=== PATIENT | male | born 1950 | race Caucasian/White ===

== ENCOUNTER → 2019-12-24 | Outpatient (CLI) | payer OTHER ==
[~2019-12-24] VITALS: Ht 180.3 cm; Wt 79.4 kg
[~2019-12-24] MED LIST: ADULT LOW DOSE81 MG PO; VITAMIN C1000 MG PO
--- NOTE | 2019-12-27 11:17 | P ---
[facility] [place] [address] PROCEDURE REPORT Name: WILYDAWN III Room #: [facility]#: [id number] Admission: 12/24/19 Attend Phys: Dawn Santamaria MD Discharge: Date of : 54 Report #: [id number] THIS REPORT FOR: cc: Ramiro Donnelly MD, Eric K. MD Thesing,Dawn Cabral MD ~ CC: Ramiro Santamaria OUTPATIENT COLONOSCOPY REPORT BRIEF HISTORY: The patient is a 69-year-old male for high risk screening colonoscopy. Colonoscopy is completed in 2007 and a polyp was removed. PREOPERATIVE DIAGNOSIS: High risk screening colonoscopy due to history of colon polyps. POSTOPERATIVE DIAGNOSES: 1. Diminutive polyp, rectum. 2. Mild sigmoid diverticulosis coli. MEDICATIONS: Deep sedation with propofol per anesthesia. SPECIMEN: Rectal polyp. ESTIMATED BLOOD LOSS: 3 mL. PROCEDURE: Colonoscopy to cecum and terminal ileum with biopsy. FINDINGS: Prior to propofol sedation, procedure of colonoscopy discussed with the patient as well as potential risks and its complications. He indicates he understands and desires to proceed. DESCRIPTION OF PROCEDURE: With the patient decubitus position, digital examination was completed, which revealed no abnormalities. Subsequently, the Olympus video colonoscope was introduced into the rectum, advanced under direct vision to the cecum. Done with minimal difficulty. Cecum was identified by the ileocecal valve and the appendiceal orifice. I was able to visualize the distal segment of terminal ileum, which was inspected and noted to be unremarkable. At that point, the scope was slowly withdrawn and careful circumferential views obtained. Upon slow withdrawal of the scope, the prep was good. The mucosa was within normal limits, normal vascular pattern, and normal light reflex. No abnormalities were noted until the sigmoid colon was reached and he was noted to have a few scattered small diverticula. There was no endoscopic evidence of diverticulitis. The scope was further withdrawn into the rectum. A diminutive polyp with an adenomatous appearance was seen and removed with biopsy forceps. [address] [address] PROCEDURE REPORT Name: DAWN JULIEN III Room #: [facility]#: [id number] Admission: 12/24/19 Attend Phys: Dawn Santamaria MD Discharge: Date of : 54 Report #: [id number] Scope was further withdrawal. No additional abnormalities were seen. Upon retroflexion, no abnormalities were seen. Scope was withdrawn. The patient tolerated the procedure well. CONDITION OF THE PATIENT UPON DISCHARGE: Following procedure, the patient is drowsy, arousable and conversant and will be discharged to home when fully ambulatory. INSTRUCTIONS TO THE PATIENT AND FAMILY AT THE TIME OF DISCHARGE: One small polyp identified and removed as described. We will follow up on the pathology. If there is an adenoma, he should return in 5 years; if it is hyperplastic, then 10 years would be indicated. Last colonoscopy was in 2007. Withdrawal time from the cecum was 14 minutes 59 seconds. <ELECTRONICALLY SIGNED> By: Dawn Santamaria MD 12/27/19 1117 [id number] [id number] Dawn Santamaria MD /nt
--- NOTE | 2019-12-27 17:09 | PATH ---
[facility] [address] [place] [address] PATHOLOGY RPT PROCEDURE Name: DAWN PRESSLEY III [id number] Ad[facility]: 12/24/19 Date of : 54 Discharge: Report #: [id number] Path Case #: [id number] [facility] Accession Number: [id number] . 01 Material submitted: . rectum - RECTAL POLYP . 01 Clinical history: . Screening, rectal polyp. . 02 Diagnosis: Polyp, rectal polyp, endoscopic biopsy: - Tubular adenoma. - Negative for high-grade dysplasia. (IUV:pit 12/27/2019) QTP 12/27/2019 1328 Local . 02 Electronically signed: . Gabby Pineda MD, Pathologist NPI- [id number] . 01 Gross description: . Received in formalin labeled "Dawn Pressley III rectal polyp" is a 0.4 x 0.2 x 0.1 cm aggregate of moore-brown soft tissue fragments. The specimen is submitted entirely in A1. [place] [place] [facility] 12/26/2019 1050 Local . 02 Pathologist provided ICD-10: D12.8 . 02 CPT . 249207 Specimen Comment: A courtesy copy of this report has been sent to [phone], [phone] Specimen Comment: [id number] Specimen Comment: Report sent to / DR ALARCON Performed at: [address], [place] [id number] MD Mundo Rosa MD Phone: [phone] Performed at: [address] [id number] MD Gabby Pineda MD Phone: [phone]
== END | disposition home or self-care (01) ==
LOC: GI 12-13 00:08
DX: Z12.11 Encounter for screening for malignant neoplasm of colon (principal); Z86.010 Personal history of colon polyps; D12.8 Benign neoplasm of rectum; K57.30 Diverticulosis of large intestine without perforation or abscess without bleeding; Z98.890 Other specified postprocedural states; Z87.891 Personal history of nicotine dependence; Z79.82 Long term (current) use of aspirin
CPT/HCPCS: 62110; 62900